=== PATIENT | male | born 1950 | race Caucasian/White ===

== ENCOUNTER 2016-07-11 10:37 | Day surgery (SDC) | payer MEDICARE, OTHER ==
[~2016-07-11 10:37] MED LIST: Lactated Ringers 1,000 ML IV SCH
--- NOTE | 2016-07-11 12:08 | PCM.PREANE ---
Preanesthetic Assessment - Anesthesia/Transfusion/Family Hx Anesthesia History: Prior Anesthesia Without Reaction Family History of Anesthesia Reaction: No Transfusion History: No Prior Transfusion(s) Intubation History: Unknown - Review of Systems General: No Symptoms Pulmonary: No Symptoms Cardiovascular: No Symptoms Gastrointestinal: No symptoms Neurological: No Symptoms Other: Reports: None - Physical Assessment O2 Sat by Pulse Oximetry: 97 Respiratory Rate: 16 Vital Signs: Last Vital Signs Temp 36 C 07/11/16 10:53 Pulse 72 07/11/16 10:53 Resp 16 07/11/16 10:53 BP 155/89 H 07/11/16 10:53 Pulse Ox 97 07/11/16 10:53 Height: 1.7 m Weight: 96.615 kg ASA Class: 3 Mental Status: Alert & Oriented x3 Airway Class: Mallampati = 2 Dentition: Reports: Normal Dentition Thyro-Mental Finger Breadths: 2 Mouth Opening Finger Breadths: 2 (very small mouth) ROM/Head Extension: Limited/Partial Lungs: Clear to auscultation, Normal respiratory effort Cardiovascular: Regular Rate, Regular Rhythm - Allergies Allergies/Adverse Reactions: Allergies Allergy/AdvReac Type Severity Reaction Status Date / Time No Known Allergies Allergy Verified 03/11/15 21:19 [facility] - Blood Blood Available: No - Anesthesia Plan Pre-Op Medication Ordered: None Beta Steph: Carvedilol Med Last Dose Date: 07/11/16 Med Last Dose Time: 07:00 - Acknowledgements Anesthesia Type Planned: MAC Pt an Appropriate Candidate for the Planned Anesthesia: Yes Alternatives and Risks of Anesthesia Discussed w Pt/Guardian: Yes Pt/Guardian Understands and Agrees with Anesthesia Plan: Yes PreAnesthesia Questionnaire HEENT History: Reports: Other (See Below) Other HEENT History: wears reading glasses Cardiovascular History: Reports: Automatic Implantable Cardioverter Defibrillators, High Cholesterol, Hypertension, Pacemaker, Other (See Below) (h/ o A.fib.,cardiomegaly, EF 50%) Gastrointestinal History: Reports: Other (See Below) Other Gastrointestinal History: occasional heartburn Musculoskeletal History: Reports: Arthritis, Back Pain, Chronic Endocrine/Metabolic History: Reports: Diabetes, Type II, Obesity/BMI 30+ - Past Surgical History Head Surgeries/Procedures: Reports: None Cardiovascular Surgical History: Reports: AICD ( with PM) GI Surgical History: Reports: Cholecystectomy Neurological Surgical History: Reports: Lumbar Spine Other Neurological Surgeries/Procedures: back surgery Musculoskeletal Surgical History: Reports: Other (See Below) Other Musculoskeletal Surgeries/Procedures:: Back surgery Mar 05 - SUBSTANCE USE Smoking Status *Q: Never Smoker Tobacco Use Within Last Twelve Months: Snuff/Dip Days Per Week of Alcohol Use: 3 Number of Drinks Per Day: 3 Total Drinks Per Week: 9 Recreational Drug Use History: No - HOME MEDS Home Medications: Home Meds Allergy Shots 1 injection IM WEEKLY 07/06/16 [History] Aspirin [[place] Aspirin] 81 mg PO DAILY 07/06/16 [History] Calcium Citrate/Vitamin D3 [Citracal + D Maximum Caplet] 1 tab PO BID 07/06/16 [ History] Carvedilol 25 mg PO BID 07/06/16 [History] Chlorthalidone 25 mg PO DAILY 07/06/16 [History] Cholecalciferol (Vitamin D3) [Vitamin D3] 1,000 unit PO DAILY 07/06/16 [History] Cyanocobalamin (Vitamin B12) [Vitamin B12] 1,000 mcg PO DAILY 07/06/16 [History] Diltiazem HCl [Cartia Xt] 240 mg PO DAILY 07/06/16 [History] Fenofibrate Nanocrystallized [Fenofibrate] 145 mg PO DAILY 07/06/16 [History] Glimepiride [Amaryl] 2 mg PO DAILY 07/06/16 [History] Lisinopril 40 mg PO DAILY 07/06/16 [History] atorvaSTATin Calcium [Atorvastatin Calcium] 10 mg PO DAILY 07/06/16 [History] - CURRENT (IN HOUSE) MEDS Current Meds: Current Medications Lactated Ringer's (Ringers, Lactated) 1,000 mls @ 125 mls/hr IV ASDIRECTED [facility] Last Admin: 07/11/16 10:57 Dose: 125 mls/hr
[2016-07-11] MEDS ORDERED: Lidocaine 2% 5 ML SDV ONE (12:33)
[2016-07-11] MEDS ORDERED: Propofol 200 MG/20 ML SDV ONE (12:34)
[2016-07-11] MEDS ORDERED: fentaNYL 100 MCG/2 ML SDV ONE (12:34)
[2016-07-11] MEDS ORDERED: Midazolam 1 MG/ML 2 ML SDV ONE (12:34)
--- NOTE | 2016-07-11 13:39 | PCM.OPNOTE ---
- General Post-Op/Procedure Note Date of Surgery/Procedure: 07/11/16 Operative Procedure(s): Colonoscopy with multiple snare and cold rectal polypectomies Pre Op Diagnosis: Desire for colorectal cancer screening Post-Op Diagnosis: Multiple rectal polyps. Anesthesia Technique: MAC (ASA III) Primary Surgeon: Lazaro Canada Condition: Good Free Text/Narrative:: Dictation [id number]
[2016-07-11] MEDS ORDERED: Lactated Ringers 1,000 ML IV SCH (13:45)
--- NOTE | 2016-07-11 13:53 | PCM.POSTAN ---
POST ANESTHESIA ASSESSMENT - MENTAL STATUS Mental Status: alert, oriented - RESPIRATORY Respiratory Status: respiratory rate WNL, airway patent, O2 saturation stable - CARDIOVASCULAR CV Status: pulse rate WNL, blood pressure stable - GASTROINTESTINAL GI Status: no symptoms - POST OP HYDRATION Hydration Status: adequate & stable - OBSERVATIONS Free Text/Narrative:: no anesthesia problems
[2016-07-11 14:41] VITALS: BP 145/78
--- NOTE | 2016-07-12 06:16 | OR ---
SURGEON: Lazaro Canada M.D. DATE OF PROCEDURE: 07/11/2016 OPERATION PERFORMED: Colonoscopy with multiple snare and cold rectal polypectomies. ANESTHESIA: MAC. ASA CLASSIFICATION: III. PREOPERATIVE DIAGNOSIS: Desire for colorectal cancer screening. POSTOPERATIVE DIAGNOSIS: Multiple rectal polyps. DESCRIPTION OF PROCEDURE: The patient was taken to the endoscopy room and positioned on the endoscopy table in the left lateral decubitus position. Time-out was called for appropriate identification of the patient and procedure. Monitored anesthesia care was provided. The colonoscope was inserted into the rectum and advanced without difficulty to the cecum. The cecum was identified by external pressure and internal landmarks. The colonoscope was retroflexed in the cecum to visualize the ascending colon from below. The colonoscope was then straightened and slowly withdrawn. The cecum, ascending colon, hepatic flexure, transverse colon, splenic flexure, descending colon, and sigmoid colon showed no tumors, polyps, diverticula, or angiodysplastic changes. Multiple polyps were encountered in the proximal mid rectum and removed with a combination of snare, electrocautery, and cold biopsy forceps. Minimal bleeding was noted. The colonoscope was retroflexed in the rectum to visualize the anal orifice from above. No other tumors or polyps were seen and there were no acute hemorrhoidal changes. The colonoscope was then straightened, the rectum aspirated, and the colonoscope removed. The patient tolerated the procedure well and was taken to recovery room in satisfactory condition. CRYSTAL KRUGER /[id number]
== END 2016-07-11 14:31 | disposition home or self-care (01) ==
LOC: MW.SDS 10:37
PROVIDERS: ATTEND Surgery
PROC: 0DBP8ZZ Excision of Rectum, Via Natural or Artificial Opening Endoscopic (ICD-10-PCS; principal; 2016-07-11)
DX: Z12.11 Encounter for screening for malignant neoplasm of colon (principal); D12.8 Benign neoplasm of rectum; M19.90 Unspecified osteoarthritis, unspecified site; I10 Essential (primary) hypertension; E11.9 Type 2 diabetes mellitus without complications; E66.9 Obesity, unspecified; G89.29 Other chronic pain; M54.9 Dorsalgia, unspecified; Z95.810 Presence of automatic (implantable) cardiac defibrillator; Z90.49 Acquired absence of other specified parts of digestive tract; Z98.890 Other specified postprocedural states; Z79.899 Other long term (current) drug therapy; Z79.84 Long term (current) use of oral hypoglycemic drugs; Z68.33 Body mass index [BMI] 33.0-33.9, adult
CPT/HCPCS: 45385; J2250; J3010; J7120; 00810; 88305; J2704

== ENCOUNTER 2018-06-01 10:43 | Day surgery (SDC) | payer MEDICARE, OTHER ==
[~2018-06-01 10:43] MED LIST changes: +Midazolam 1 MG/ML 2 ML SDV ONE; +Propofol 200 MG/20 ML SDV ONE; +fentaNYL 100 MCG/2 ML SDV ONE
--- NOTE | 2018-06-01 11:22 | PCM.PREANE ---
Preanesthetic Assessment - Anesthesia/Transfusion/Family Hx Anesthesia History: Prior Anesthesia Without Reaction Family History of Anesthesia Reaction: No Transfusion History: No Prior Transfusion(s) Intubation History: Unknown - Review of Systems General: No Symptoms Pulmonary: No Symptoms Cardiovascular: No Symptoms Neurological: No Symptoms Other: Reports: None - Physical Assessment NPO Status Date: 05/31/18 Height: 5 ft 7 in Weight: 97.976 kg ASA Class: 3 Mental Status: Alert & Oriented x3 Airway Class: Mallampati = 2 Dentition: Reports: Normal Dentition ROM/Head Extension: Full Lungs: Clear to Auscultation, Normal Respiratory Effort Cardiovascular: Regular Rate, Regular Rhythm - Allergies Allergies/Adverse Reactions: Allergies Allergy/AdvReac Type Severity Reaction Status Date / Time No Known Allergies Allergy Verified 05/29/18 14:24 - Blood Blood Available: No - Anesthesia Plan Pre-Op Medication Ordered: None - Acknowledgements Anesthesia Type Planned: General Anesthesia, MAC Pt an Appropriate Candidate for the Planned Anesthesia: Yes Alternatives and Risks of Anesthesia Discussed w Pt/Guardian: Yes Pt/Guardian Understands and Agrees with Anesthesia Plan: Yes Additional Comments: PMH: htn, hx of non ischemic cardiomyopathy about 10 yr ago. has AICD, EF now 55 % as of 6 mo ago. DM2 PreAnesthesia Questionnaire HEENT History: Reports: Allergic Rhinitis, Other (See Below) Other HEENT History: uses reading glasses Cardiovascular History: Reports: High Cholesterol, Hypertension Gastrointestinal History: Reports: Colon Polyp Other Gastrointestinal History: occasional heartburn Musculoskeletal History: Reports: Arthritis Endocrine/Metabolic History: Reports: Obesity/BMI 30+, Other (See Below) Other Endocrine/Metabolic History: was put on oral diabetes medications for pre diabetes- Hgb A1c dropped too low so was taken off all but Glimepiride - Past Surgical History Head Surgeries/Procedures: Reports: None Cardiovascular Surgical History: Reports: Pacer Other Cardiovascular Surgeries/Procedures: pacemaker inserted after course of medications (possible heart damage from virus) GI Surgical History: Reports: Cholecystectomy, Colonoscopy Neurological Surgical History: Reports: Lumbar Spine, Spinal Fusion - SUBSTANCE USE Smoking Status *Q: Never Smoker Tobacco Use Within Last Twelve Months: Smokeless Tobacco Days Per Week of Alcohol Use: 2 Recreational Drug Use History: No - HOME MEDS Home Medications: Home Meds Aspirin [[place] Aspirin EC] 81 mg PO DAILY 07/06/16 [History] Calcium Citrate/Vitamin D3 [Citracal + D Maximum Caplet] 1 tab PO BID 07/06/16 [ History] Carvedilol 25 mg PO BID 07/06/16 [History] Chlorthalidone 25 mg PO DAILY 07/06/16 [History] Cholecalciferol (Vitamin D3) [Vitamin D3] 1,000 unit PO DAILY 07/06/16 [History] Cyanocobalamin (Vitamin B12) [Vitamin B12] 1,000 mcg PO DAILY 07/06/16 [History] Diltiazem HCl [Cartia Xt] 240 mg PO BEDTIME 07/06/16 [History] Fenofibrate Nanocrystallized [Fenofibrate] 145 mg PO DAILY 07/06/16 [History] Glimepiride [Amaryl] 2 mg PO DAILY 07/06/16 [History] Lisinopril 40 mg PO DAILY 07/06/16 [History] Rosuvastatin Calcium 20 mg PO DAILY 05/29/18 [History] Vit C/E/Zn/Coppr/Lutein/Zeaxan [Preservision Areds 2 Softgel] 1 cap PO BID 05/29 [History] - CURRENT (IN HOUSE) MEDS Current Meds: Current Medications Lactated Ringer's (Ringers, Lactated) 1,000 mls @ 125 mls/hr IV ASDIRECTED [facility] Discontinued Medications Fentanyl (Sublimaze) Confirm Administered Dose 100 mcg .ROUTE .STK-MED ONE Stop: 06/01/18 07:14 Lidocaine HCl (Xylocaine-Mpf 1%) Confirm Administered Dose 5 mls @ as directed .ROUTE .STK-MED ONE Stop: 06/01/18 07:15 Midazolam HCl (Versed 1 Mg/Ml) Confirm Administered Dose 2 mg .ROUTE .STK-MED ONE Stop: 06/01/18 07:15 Propofol (Diprivan 20 Ml) Confirm Administered Dose 200 mg .ROUTE .STK-MED ONE Stop: 06/01/18 07:14
[2018-06-01] MEDS ORDERED: Propofol 200 MG/20 ML SDV ONE (13:08)
[2018-06-01] MEDS ORDERED: Sodium Chloride 0.9% 20 ML ONE (13:32)
--- NOTE | 2018-06-01 13:40 | PCM.OPNOTE ---
- General Post-Op/Procedure Note Date of Surgery/Procedure: 06/01/18 Operative Procedure(s): Colonoscopy with multiple cold polypectomies from the ascending colon, transverse colon, sigmoid colon and rectum. Pre Op Diagnosis: Personal history of colon polyps. Intermittent rectal bleeding. Post-Op Diagnosis: Multiple colon polyps in the ascending colon, transverse colon, sigmoid colon and rectum. Diverticulosis. Anesthesia Technique: MAC (ASA III) Primary Surgeon: Lazaro Canada Condition: Good Free Text/Narrative:: DICTATION [id number] CPT CODE 05032
[2018-06-01] MEDS ORDERED: Lactated Ringers 1,000 ML IV SCH (13:45)
--- NOTE | 2018-06-01 13:55 | PCM.POSTAN ---
POST ANESTHESIA ASSESSMENT - MENTAL STATUS Mental Status: Alert, Oriented - RESPIRATORY Respiratory Status: Respiratory Rate WNL, Airway Patent, O2 Saturation Stable - CARDIOVASCULAR CV Status: Pulse Rate WNL, Blood Pressure Stable - GASTROINTESTINAL GI Status: No Symptoms - POST OP HYDRATION Hydration Status: Adequate & Stable
--- NOTE | 2018-06-01 13:55 | PCM48HPAN ---
Post Anesthesia Note - EVALUATION WITHIN 48HRS OF ANESTHETIC Vital Signs in Normal Range: Yes Patient Participated in Evaluation: Yes Respiratory Function Stable: Yes Airway Patent: Yes Cardiovascular Function Stable: Yes Hydration Status Stable: Yes Pain Control Satisfactory: Yes Nausea and Vomiting Control Satisfactory: Yes Mental Status Recovered: Yes Resp Rate: 14
[2018-06-01 15:27] VITALS: BP 153/90
--- NOTE | 2018-06-01 20:15 | OR ---
SURGEON: Lazaro Canada M.D. DATE OF PROCEDURE: 06/01/2018 OPERATION PERFORMED: Colonoscopy with multiple cold polypectomies from the ascending colon, transverse colon, sigmoid colon, and rectum. ANESTHESIA: MAC. ASA CLASSIFICATION: 3. PREOPERATIVE DIAGNOSES: 1. Personal history of colon polyps. 2. Rectal bleeding. POSTOPERATIVE DIAGNOSES: Multiple polyps noted and sent for separate histologic analysis from the ascending colon, mid transverse colon, distal transverse colon, sigmoid colon, and rectum. DESCRIPTION OF PROCEDURE: The patient was taken to the endoscopy room and positioned on the endoscopy table in the left lateral decubitus position. Time-out was called for appropriate identification of the patient and procedure. Monitored anesthesia care was provided. The colonoscope was inserted into the rectum and immediately 1 polyp was encountered. This was removed immediately. The colonoscope was then advanced to the cecum where the colonoscope was retroflexed to visualize the ascending colon from below, then straightened, and slowly withdrawn. Multiple polyps were encountered in a very similar area in the ascending colon and sent for histologic analysis. The scope was withdrawn. The remainder of the ascending colon, hepatic flexure, and proximal transverse colon were clean. Polyps were encountered in the mid and distal transverse colon and sent for separate histologic analysis. No polyps were encountered at the splenic flexure nor in the descending colon. More polyps were encountered in the sigmoid colon both proximally and distally and sent for separate histologic analysis. Another polyp was encountered in the proximal rectum and sent for separate histologic analysis. Once all those polyps that were seen were removed, the colonoscope was withdrawn until the distal rectum and retroflexed to visualize the anal orifice from above. No tumors, polyps, or acute hemorrhoidal changes were noted in the retroflexed position. The colonoscope was then straightened, the rectum aspirated, and the colonoscope removed. The patient did tolerate the procedure well and was taken to recovery room in stable condition. CRYSTAL / SLICK /[id number]
== END 2018-06-01 14:22 | disposition home or self-care (01) ==
LOC: MW.SDS 10:43
PROVIDERS: ATTEND Surgery
DX: K62.5 Hemorrhage of anus and rectum (principal); D12.5 Benign neoplasm of sigmoid colon; D12.2 Benign neoplasm of ascending colon; D12.3 Benign neoplasm of transverse colon; D12.4 Benign neoplasm of descending colon; D12.8 Benign neoplasm of rectum; K57.30 Diverticulosis of large intestine without perforation or abscess without bleeding; I10 Essential (primary) hypertension; I42.8 Other cardiomyopathies; E11.9 Type 2 diabetes mellitus without complications; E78.00 Pure hypercholesterolemia, unspecified; F17.290 Nicotine dependence, other tobacco product, uncomplicated; M19.90 Unspecified osteoarthritis, unspecified site; Z95.810 Presence of automatic (implantable) cardiac defibrillator; Z86.010 Personal history of colon polyps; Z79.82 Long term (current) use of aspirin; Z79.84 Long term (current) use of oral hypoglycemic drugs; Z79.899 Other long term (current) drug therapy; Z91.09 Other allergy status, other than to drugs and biological substances
CPT/HCPCS: 45380; J2001; J2250; J2704; J3010; J7120; 88305

== ENCOUNTER 2020-06-26 07:56 | Day surgery (SDC) | payer MEDICARE, OTHER ==
[~2020-06-26 07:56] MED LIST changes: +cefOXitin 2 GM in Premix Bag 1 BAG IV ONE
--- NOTE | 2020-06-26 08:45 | PCM.PREANE ---
Preanesthetic Assessment - Anesthesia/Transfusion/Family Hx Anesthesia History: Prior Anesthesia Without Reaction Family History of Anesthesia Reaction: No Transfusion History: No Prior Transfusion(s) Intubation History: Unknown - Review of Systems General: No Symptoms Pulmonary: No Symptoms Cardiovascular: No Symptoms Gastrointestinal: No Symptoms Neurological: No Symptoms Other: Reports: None - Physical Assessment NPO Status Date: 06/26/20 NPO Status Time: 00:01 Vital Signs: Last Vital Signs Temp 96.4 F L 06/26/20 08:05 Pulse 75 06/26/20 08:05 Resp 15 06/26/20 08:05 BP 125/79 06/26/20 08:05 Pulse Ox 97 06/26/20 08:05 Height: 5 ft 7 in Weight: 203 lb ASA Class: 3 Mental Status: Alert & Oriented x3 Airway Class: Mallampati = 2 Dentition: Reports: Normal Dentition ROM/Head Extension: Limited/Partial Lungs: Clear to Auscultation, Normal Respiratory Effort Cardiovascular: Regular Rate, Regular Rhythm - Lab Values: Laboratory Last Values POC Glucose 145 mg/dL (70-99) H 06/26/20 08:21 - Allergies Allergies/Adverse Reactions: Allergies Allergy/AdvReac Type Severity Reaction Status Date / Time No Known Allergies Allergy Verified 06/22/20 07:59 - Anesthesia Plan Pre-Op Medication Ordered: None - Acknowledgements Anesthesia Type Planned: General Anesthesia Pt an Appropriate Candidate for the Planned Anesthesia: Yes Alternatives and Risks of Anesthesia Discussed w Pt/Guardian: Yes Pt/Guardian Understands and Agrees with Anesthesia Plan: Yes Additional Comments: npo hayfever aodm glu 145 htn tob none etoh a few hard drinks 3-4X a week hx viral myocarditis 2003 obesity bmi 32 AICD implanted initially 2003, recent new icd 2017, checked last mar 2020 pt states it has not 'shocked' him for many years no mi, cp, chf par no questions [employer] called - confirmed it is an AICD, a magnet deactivates the defib portion PreAnesthesia Questionnaire HEENT History: Reports: Allergic Rhinitis, Other (See Below) Other HEENT History: uses reading glasses Cardiovascular History: Reports: High Cholesterol, Hypertension Respiratory History: Reports: None Gastrointestinal History: Reports: None, Colon Polyp Genitourinary History: Reports: None Musculoskeletal History: Reports: Arthritis Neurological History: Reports: None Psychiatric History: Reports: None Endocrine/Metabolic History: Reports: Diabetes, Type II, Obesity/BMI 30+ Hematologic History: Reports: None Immunologic History: Reports: None Oncologic (Cancer) History: Reports: None Dermatologic History: Reports: None - Past Surgical History Head Surgeries/Procedures: Reports: None HEENT Surgical History: Reports: None Cardiovascular Surgical History: Reports: Pacer, Other (See Below) Other Cardiovascular Surgeries/Procedures: pacemaker-defibrillator Respiratory Surgical History: Reports: None GI Surgical History: Reports: Cholecystectomy, Colonoscopy Male Surgical History: Reports: None Endocrine Surgical History: Reports: None Neurological Surgical History: Reports: Lumbar Spine, Spinal Fusion Other Neurological Surgeries/Procedures: back surgery Musculoskeletal Surgical History: Reports: Other (See Below) Other Musculoskeletal Surgeries/Procedures:: Back surgery Mar 05 Oncologic Surgical History: Reports: None Dermatological Surgical History: Reports: None - SUBSTANCE USE Tobacco Use Within Last Twelve Months: Other (See Below) - HOME MEDS Home Medications: Home Meds Aspirin [[place] Aspirin EC] 81 mg PO DAILY 07/06/16 [History] Calcium Citrate/Vitamin D3 [Citracal + D Maximum Caplet] 1 tab PO BID 07/06/16 [History] Chlorthalidone 25 mg PO DAILY 07/06/16 [History] Cholecalciferol (Vitamin D3) [Vitamin D3] 1,000 unit PO DAILY 07/06/16 [History] Cyanocobalamin (Vitamin B12) [Vitamin B12] 1,000 mcg PO DAILY 07/06/16 [History] Fenofibrate Nanocrystallized [Fenofibrate] 145 mg PO DAILY 07/06/16 [History] Lisinopril 40 mg PO DAILY 07/06/16 [History] carvediloL [Carvedilol] 25 mg PO BID 07/06/16 [History] Vit C/E/Zn/Coppr/Lutein/Zeaxan [Preservision Areds 2 Softgel] 1 cap PO BID 11/08 [History] Chlorthalidone 25 mg PO DAILY 06/22/20 [History] Dapagliflozin Propanediol [Farxiga] 10 mg PO DAILY 06/22/20 [History] Icosapent Ethyl [Vascepa] 2 gm PO DAILY 06/22/20 [History] atorvaSTATin Calcium [Atorvastatin Calcium] 40 mg PO DAILY 06/22/20 [History] dilTIAZem HCL [Cartia Xt] 240 mg PO DAILY 06/22/20 [History] - CURRENT (IN HOUSE) MEDS Current Meds: Current Medications Lactated Ringer's (Ringers, Lactated) 1,000 mls @ 125 mls/hr IV ASDIRECTED [facility] Last Admin: 06/26/20 08:24 Dose: 125 mls/hr Documented by: Discontinued Medications Fentanyl (Fentanyl 100 Mcg/2 Ml Sdv) Confirm Administered Dose 100 mcg .ROUTE .STK-MED ONE Stop: 06/26/20 06:58 Cefoxitin Sodium 2 gm/ Premix 50 mls @ 100 mls/hr IV ONETIME ONE Stop: 06/26/20 07:29 Midazolam HCl (Midazolam 1 Mg/Ml 2 Ml Sdv) Confirm Administered Dose 2 mg .ROUTE .STK-MED ONE Stop: 06/26/20 06:58 Propofol (Propofol 200 Mg/20 Ml Sdv) Confirm Administered Dose 200 mg .ROUTE .STK-MED ONE Stop: 06/26/20 06:57
[2020-06-26] MEDS ORDERED: Sodium Chloride 0.9% 20 ML ONE (09:18)
[2020-06-26] MEDS ORDERED: cefOXitin 1 GM Vial ONE (09:18)
[2020-06-26] MEDS ORDERED: ePHEDrine 50 MG/ML SDV ONE (09:34)
[2020-06-26] MEDS ORDERED: Propofol 200 MG/20 ML SDV ONE (09:51)
--- NOTE | 2020-06-26 10:11 | PCM.OPNOTE ---
- General Post-Op/Procedure Note Date of Surgery/Procedure: 06/26/20 Operative Procedure(s): Colonoscopy with multiple cold polypectomies from the cecum, transverse colon and descending colon. Pre Op Diagnosis: Personal history of colon polyps. Post-Op Diagnosis: Cecal, transverse colon and descending colon polyps. Mild sigmoid diverticulosis. Anesthesia Technique: MAC (ASA III) Primary Surgeon: Lazaro Canada Condition: Good Free Text/Narrative:: DICTATION [id number] CPT CODE [id number]
[2020-06-26] MEDS ORDERED: Lactated Ringers 1,000 ML IV SCH (10:15)
[2020-06-26 10:36] VITALS: BP 119/69; PULSE 65
--- NOTE | 2020-06-26 11:24 | PCM48HPAN ---
Post Anesthesia Note - EVALUATION WITHIN 48HRS OF ANESTHETIC Vital Signs in Normal Range: Yes Patient Participated in Evaluation: Yes Respiratory Function Stable: Yes Airway Patent: Yes Cardiovascular Function Stable: Yes Hydration Status Stable: Yes Pain Control Satisfactory: Yes Nausea and Vomiting Control Satisfactory: Yes Mental Status Recovered: Yes Vital Signs: Last Vital Signs Temp 97.3 F 06/26/20 10:21 Pulse 65 06/26/20 10:21 Resp 14 06/26/20 10:21 BP 119/69 06/26/20 10:21 Pulse Ox 92 L 06/26/20 10:21
--- NOTE | 2020-06-26 11:24 | PCM.POSTAN ---
POST ANESTHESIA ASSESSMENT - MENTAL STATUS Mental Status: Alert (no anesthetic problems), Oriented - VITAL SIGNS Vital Signs: Last Vital Signs Temp 97.3 F 06/26/20 10:21 Pulse 65 06/26/20 10:21 Resp 14 06/26/20 10:21 BP 119/69 06/26/20 10:21 Pulse Ox 92 L 06/26/20 10:21 - RESPIRATORY Respiratory Status: Respiratory Rate WNL, Airway Patent, O2 Saturation Stable - CARDIOVASCULAR CV Status: Pulse Rate WNL, Blood Pressure Stable - GASTROINTESTINAL GI Status: No Symptoms - POST OP HYDRATION Hydration Status: Adequate & Stable
--- NOTE | 2020-06-26 14:12 | OR ---
SURGEON: Lazaro Canada M.D. DATE OF PROCEDURE: 06/26/2020 OPERATION PERFORMED: Colonoscopy with multiple cold polypectomies from the cecum, transverse colon, and descending colon. PRIMARY SURGEON: Lazaro Canada M.D. ANESTHESIA: MAC. ASA CLASSIFICATION: III. PREOPERATIVE DIAGNOSIS: Personal history of colon polyps. POSTOPERATIVE DIAGNOSES: 1. Multiple colon polyps from the cecum, transverse colon, and descending colon. 2. Diverticulosis. DESCRIPTION OF PROCEDURE: The patient was taken to the endoscopy room and positioned on the endoscopy table in the left lateral decubitus position. Time-out was called for appropriate identification of patient and procedure. Monitored anesthesia care was provided. The patient did receive prophylactic antibiotics as he has an implantable cardio defibrillator. The colonoscope was inserted into the rectum and advanced with minimal difficulty to the cecum where the colonoscope was retroflexed to visualize the ascending colon from below. The colonoscope was then straightened and slowly withdrawn. Multiple polyps were encountered in the colon; primarily in the cecum, transverse colon, and descending colon. These polyps were all removed and sent for appropriate histologic analysis. A few scattered diverticula were noted in the sigmoid colon. The prep was fair. The cecum, ascending colon, hepatic flexure, transverse colon, splenic flexure, descending colon, sigmoid colon, and rectum were quite well visualized. Changes were as described above with multiple small polyps noted in those sites. None of these were amenable to snare cautery, and all were removed with cold biopsy forceps. Once the colonoscope was withdrawn to the rectum, it was retroflexed to visualize the anal orifice from above. No tumors, polyps, or acute hemorrhoidal changes were noted. The colonoscope was then straightened, the rectum aspirated, and the colonoscope removed. The patient tolerated the procedure well and was taken to recovery room in stable condition. CRYSTAL / SLICK /[id number]
== END 2020-06-26 10:49 | disposition home or self-care (01) ==
LOC: MW.SDS 07:56
PROVIDERS: ATTEND Surgery
DX: D12.2 Benign neoplasm of ascending colon (principal); D12.3 Benign neoplasm of transverse colon; D12.4 Benign neoplasm of descending colon; D12.5 Benign neoplasm of sigmoid colon; K57.30 Diverticulosis of large intestine without perforation or abscess without bleeding; E11.9 Type 2 diabetes mellitus without complications; I10 Essential (primary) hypertension; E78.00 Pure hypercholesterolemia, unspecified; E66.9 Obesity, unspecified; Z68.32 Body mass index [BMI] 32.0-32.9, adult; Z91.09 Other allergy status, other than to drugs and biological substances; Z79.82 Long term (current) use of aspirin; Z79.899 Other long term (current) drug therapy; Z86.010 Personal history of colon polyps; Z95.810 Presence of automatic (implantable) cardiac defibrillator
CPT/HCPCS: 45380; 82947; J0694; J2250; J2704; J3010; J7120; 00812

== ENCOUNTER 2023-05-12 07:20 | Day surgery (SDC) | payer MEDICARE, OTHER ==
[~2023-05-12 07:20] MED LIST changes: +Lidocaine 2% 5 ML SDV ONE; -Midazolam 1 MG/ML 2 ML SDV ONE; -Propofol 200 MG/20 ML SDV ONE; +Water For Injection, Sterile 20 ML ONE; -cefOXitin 2 GM in Premix Bag 1 BAG IV ONE; +dexmedeTOMIDine HCl 200 MCG/2 ML SDV ONE
[2023-05-12] MEDS ORDERED: propofoL 50 ML ONE (07:23)
[2023-05-12] MEDS: Lactated Ringers 1,000 ML IV SCH (07:57)
[2023-05-12] MEDS ORDERED: Propofol 200 MG/20 ML SDV ONE ×2 (09:18→09:41)
[2023-05-12] MEDS ORDERED: Lactated Ringers 1,000 ML IV SCH (10:00)
[2023-05-12 10:35] VITALS: BP 108/61; PULSE 63
== END 2023-05-12 10:42 | disposition home or self-care (01) ==
LOC: MW.SDS 07:20
PROVIDERS: ATTEND Surgery
DX: K29.50 Unspecified chronic gastritis without bleeding (principal); K21.9 Gastro-esophageal reflux disease without esophagitis; D12.2 Benign neoplasm of ascending colon; D12.3 Benign neoplasm of transverse colon; D12.4 Benign neoplasm of descending colon; K63.5 Polyp of colon; J30.9 Allergic rhinitis, unspecified; M19.90 Unspecified osteoarthritis, unspecified site; E11.9 Type 2 diabetes mellitus without complications; I10 Essential (primary) hypertension; K62.5 Hemorrhage of anus and rectum; D12.6 Benign neoplasm of colon, unspecified; D12.8 Benign neoplasm of rectum; Z79.899 Other long term (current) drug therapy
CPT/HCPCS: 43239; 45380; 45385; 82947; J2704; J3010; J7120; 00813; 99100; J3490